=== PATIENT | female | born 1980 | race Caucasian/White ===

== ENCOUNTER → 2018-07-23 13:05 | Outpatient (CLI) | payer SELFPAY | PROVIDERS: Family Provider Family Medicine; PCP Family Medicine; Visit Provider Nurse Practitioner Family | DX: N39.0 Urinary tract infection, site not specified (principal) | CPT/HCPCS: 87086; 87088; 87186 ==

== ENCOUNTER → 2020-07-15 07:52 | Outpatient (CLI) | payer BC, SELFPAY ==
[2020-07-02 08:12] VITALS: BMI 26.2
[2020-07-15 10:25] LABS: AST(SGOT) 16 U/L (15-37); Alanine Aminotransfer ALT/SGPT 22 U/L (13-56); Albumin, Serum 3.8 g/dL (3.2-5.0); Alkaline Phosphatase 69 U/L (45-117); Anion Gap 8 (5-15); BUN 20 mg/dL (7-18); BUN/Creat Ratio 21.8 RATIO (10-20); Calcium,Total 8.9 mg/dL (8.5-10.1); Chloride 109 mmol/L (98-107); Cholesterol 185 mg/dL (200); Creatinine, Serum 0.92 mg/dL (0.55-1.02); EST Glomerular Filtration Rate 72 mL/min (>60); Est Glom Filt Rate - Afr Amer 87 mL/min (>60); Globulin 3.7 g/dL (2.2-4.2); Glucose 92 mg/dL (74-106); High Density Lipoprotein 51 mg/dL; Potassium 3.4 mmol/L (3.5-5.1); Protein, Total 7.5 g/dL (6.4-8.2); Sodium Level 140 mmol/L (136-145); Triglycerides 76 mg/dL; Very Low Density Lipoprotein 15 mg/dL (5-40)
== END ==
PROVIDERS: PCP Family Medicine; Referring Provider Family Medicine; Visit Provider Family Medicine
DX: G43.909 Migraine, unspecified, not intractable, without status migrainosus (principal); Z13.220 Encounter for screening for lipoid disorders
CPT/HCPCS: 36415; 80053; 80061

== ENCOUNTER → 2020-07-17 06:32 | Outpatient (CLI) | payer BC, SELFPAY ==
[2020-07-02 08:12] VITALS: BMI 26.2
--- NOTE | 2020-07-17 06:32 | MRI_ITS ---
STUDY: MRI BRAIN WITH AND WITHOUT CONTRAST REASON FOR EXAM: Female, 40 years old. chronic parietal migraines x 20 yrs TECHNIQUE: Standardized multiplanar fat and water weighted pulse sequences were obtained. IV 13cc dotarem was administered for the contrast portion of the examination. COMPARISON: CT of the head dated 01/03/2011 FINDINGS: Normal size of the ventricles and extra-axial spaces for the patient''s age. Normal white matter tracts of the supratentorial brain. Normal bilateral basal ganglia. Normal thalami. There is no extra-axial fluid accumulation. Normal flow voids within the major intracranial circulation suggesting patency by spin echo criteria. Normal venous enhancement. There is no enhancing intra-axial or extra-axial abnormality. Normal sella turcica, pituitary gland, infundibular stalk, optic chiasm and hypothalamus. Normal tectal plate and pineal gland. Normal midbrain, nimisha and medulla. Normal cerebellum. Normal basal cisterns. Normal bilateral temporal bones. Normal bilateral internal auditory canals. No demonstrated orbital abnormality, within the constraints of a routine brain study. Normal visualized paranasal sinuses. Normal calvarium and skull base. Normal visualized soft tissue structures. Normal visualized upper cervical spine. MRI/Brain W/WO Contrast IMPRESSION: Normal unenhanced and enhanced MRI of the brain. Electronically Signed: Jean Carlos Marquez MD at 8:06 EDT Tel , Service support ,
== END ==
PROVIDERS: PCP Family Medicine; Referring Provider Nurse Practitioner Family; Visit Provider Nurse Practitioner Family
DX: G43.909 Migraine, unspecified, not intractable, without status migrainosus (principal)
CPT/HCPCS: 70553; A9575

== ENCOUNTER 2022-09-25 06:37 | Emergency (ER) | payer OTHER, SELFPAY ==
[2022-09-25 06:39] VITALS: BP 170/94; PULSE 90; RESP 18; TEMP 36.4; O2SAT 98; BMI 25.5
--- NOTE | 2022-09-25 06:50 | CT_ITS ---
EXAM: CT ABDOMEN AND PELVIS WITHOUT INTRAVENOUS CONTRAST CLINICAL INDICATION: left flank pain TECHNIQUE: Helically acquired images were obtained of the abdomen and pelvis without intravenous contrast. This CT exam was performed using one or more of the following dose reduction techniques: automated exposure control, adjustment of the mA and/or kV according to patient size, and/or use of iterative reconstruction technique. This report was created using [employer] report generation technology. RADIATION DOSE: CTDIvol = 6.64 mGy, DLP = 327.03 mGy-cm. COMPARISON: None. FINDINGS: LOWER THORAX: Unremarkable. Lung bases are clear. No cardiomegaly. No significant pericardial effusion. ABDOMEN: LIVER: Unremarkable. Homogeneous. GALLBLADDER AND BILE DUCTS: Unremarkable. No calcified gallstones. No gallbladder distention or wall edema. No intra- or extrahepatic biliary ductal dilation. PANCREAS: Unremarkable. No focal cystic mass. SPLEEN: Unremarkable. Normal size without focal cystic or solid mass. ADRENALS: Unremarkable. No nodules. KIDNEYS AND URETERS: Moderate left hydroureteronephrosis due to a stone measuring 5 x 4 x 4.5 mm at the left ureterovesical junction. Numerous small nonobstructing stones bilaterally in the kidneys. Normal renal size and position. STOMACH AND BOWEL: Unremarkable. No stomach or bowel distention. No focal inflammatory change. PELVIS: APPENDIX: Appendectomy by history. BLADDER: Unremarkable. REPRODUCTIVE: Hysterectomy. ABDOMEN and PELVIS: INTRAPERITONEAL SPACE: Unremarkable. No ascites or other fluid collection. No free air. BONES/JOINTS: Unremarkable. No suspicious lytic or blastic abnormality. SOFT TISSUES: Unremarkable. No discrete abdominal or pelvic wall hernia. VASCULATURE: Unremarkable. Abdominal aorta is non-dilated. LYMPH NODES: Unremarkable. No enlarged lymph nodes. CT/Abdomen/Pelvis without Cont IMPRESSION: 1. Moderate left hydroureteronephrosis due to a stone measuring 5 x 4 x 4.5 mm at the left ureterovesical junction. 2. Numerous small nonobstructing stones bilaterally in the kidneys. 3. Hysterectomy. Electronically Signed: Marty William MD at 7:38 EST ,
--- NOTE | 2022-09-25 06:51 | EX.ED.DYSGE1 ---
HPI History of Present Illness Chief Complaint: Flank Pain Informant: patient Onset/Context/Timing Onset: Yesterday Context: Gradual Onset Timing: Waxes and wanes Current Severity: Moderate Maximum Severity: Severe Narrative Narrative: Patient present secondary left flank pain. She states she woke yesterday morning with left-sided flank pain. She had urinary frequency but no dysuria. She is concerned she may have a kidney stone. She reports poor appetite with some mild nausea secondary to pain. [facility] Medical History Allergic rhinitis Attention deficit disorder Generalized anxiety disorder Hypertension, essential IBS (irritable bowel syndrome) Migraine Migraine without aura, not intractable, without status migrainosus Mood disorder Raynaud's disease Seborrheic keratosis Home Medications multivitamin 1 tab PO DAILY 06/29/20 [History Last Taken Unknown] dextroamphetamine-amphetamine ER 20 mg 24hr capsule,extend release 20 mg PO DAILY 06/14/21 [History Last Taken Unknown] flurbiprofen 100 mg tablet 100 mg PO TID PRN pain #90 tabs 06/09/22 [Rx Last Taken Unknown] atogepant 60 mg tablet (Qulipta) 60 mg PO DAILY #30 tabs 08/15/22 [Rx Last Taken Unknown] duloxetine 30 mg capsule,delayed release 30 mg PO DAILY #30 caps 08/15/22 [Rx Last Taken Unknown] eletriptan 40 mg tablet 40 mg .Route .COMPLEX migraine headache #9 tabs 08/15/22 [Rx Last Taken Unknown] verapamil 360 mg 24 hr capsule,extended release 360 mg PO QAM #30 caps 08/15/22 [Rx Last Taken Unknown] hydrocodone-acetaminophen 5-325mg 5mg-325mg 1 tab PO Q6H PRN pain 3 days #10 tabs 09/25/22 [Rx Last Taken Unknown] ibuprofen 600 mg tablet 600 mg PO Q8H PRN PRN pain #20 tabs 09/25/22 [Rx Last Taken Unknown] ondansetron 4 mg disintegrating tablet 4 mg PO Q8H PRN nausea and vomiting #10 tabs 09/25/22 [Rx Last Taken Unknown] tamsulosin 0.4 mg capsule (Flomax) 0.4 mg PO DAILY #7 caps 09/25/22 [Rx Last Taken Unknown] Allergy/AdvReac Type Severity Reaction Status Date / Time shellfish derived Allergy Swelling Verified 09/25/22 06:43 Family History Father Heart disease Hypertension Melanoma Grandmother Melanoma Aunt Melanoma Aunt Melanoma Other CAD (coronary artery disease) Surgical History H/O: hysterectomy History of appendectomy History of Social History Smoking Status: Never smoker second hand exposure: No alcohol intake: current alcohol intake frequency: a few times a month Alcohol type: beer and hard liquor substance use type: does not use frequency: 1-2 times per week rajat/taoist: None seatbelt use: always ROS ROS ED Constitutional Constitutional ED: Denies chills or fever(s) Eyes Eyes: Denies change in vision or discharge from eye(s) ENT ENT ED: Denies discharge from eye(s), rhinorrhea or sore throat Cardiovascular Cardiovascular: Denies chest pain or palpitations Respiratory/Chest Respiratory/Chest: Denies cough or dyspnea Gastrointestinal Gastrointestinal: Reports abdominal pain and nausea; Denies diarrhea or vomiting Genitourinary Genitourinary ED: Reports urinary frequency; Denies difficulty urinating or dysuria Musculoskeletal Musculoskeletal: Reports back pain; Denies extremity pain Integumentary Denies Abrasions or rash Neurologic Neurologic: Denies headache(s) or weakness Allergic/Immunologic Allergic/Immunologic ED: Denies lip swelling or urticaria EXAM Physical Exam Const Vital Signs: 09/25/22 06:39 09/25/22 06:47 Temperature 97.6 F L Temperature Source Temporal Pulse Rate 90 Respiratory Rate 18 Respiratory Effort Normal Non-Labored Respiratory Pattern Normal Blood Pressure 170/94 H Blood Pressure Mean 119 Pulse Ox 98 Oxygen Delivery Method Room Air Positive well nourished and well developed General Appearance ED: well developed HEENT Reports normocephalic and head/scalp atraumatic Eyes PERRL and EOMs intact bilaterally Neck supple Chest Wall inspection of chest normal and palpation of chest normal Resp normal respiratory effort and clear to auscultation bilaterally Cardio regular rate and regular rhythm GI normal to inspection, nondistended, normoactive bowel sounds Palpation: soft Back/Spine General Back: CVA tenderness left Extremity normal to inspection Neuro oriented x3 and no sensory deficits noted Sensorium / Orientation: alert Motor Exam: strength 5/5 throughout Psych mental status grossly normal Skin no rashes or lesions noted MDM MDM MDM Narrative Medical decision making narrative: Patient was given morphine, Toradol, Zofran, IV fluids. Lab work and urinalysis obtained. Patient sent for CT flank. Lab Data Attestation: I reviewed the patient's lab results. Labs: Laboratory Results - last 24 hr 09/25/22 09/25/22 09/25/22 07:00 07:00 07:00 WBC 14.4 H RBC 4.28 Hgb 12.7 Hct 39.5 MCV 92.3 MCH 29.7 MCHC 32.2 RDW Std Deviation 45.5 H RDW Coeff of Sophia 13.3 Plt Count 262 MPV 9.7 Immature Gran % (Auto) 0.500 Neut % (Auto) 78.8 H Lymph % (Auto) 11.3 L [place] % (Auto) 7.6 Eos % (Auto) 1.5 Baso % (Auto) 0.3 Absolute Neuts (auto) 11.4 H Absolute Lymphs (auto) 1.63 Nucleated RBC % 0 Sodium 139 Potassium 3.4 L Chloride 105 Carbon Dioxide 29.0 Anion Gap 5 BUN 18 Creatinine 1.14 H Estim Creat Clear Calc 54.95 Est GFR (MDRD) Af Amer 67 Est GFR (MDRD) Non-Af 55 L BUN/Creatinine Ratio 15.8 Glucose 139 H Calcium 9.1 Urine Color Yellow Urine Clarity Clear Urine pH 6.0 Ur Specific [place] 1.025 Urine Protein 30 H Urine Glucose (UA) Normal Urine Ketones Negative Urine Occult Blood 150 H Urine Nitrite Negative Urine Bilirubin Negative Urine Urobilinogen Normal Ur Leukocyte Esterase 100 H Urine RBC 5-10 SEEN Urine WBC 0-5 SEEN Ur Squamous Epith Cells 0-5 SEEN Urine Bacteria 1+ Urine Mucus 0 SEEN Radiography Diagnostic Testing: Clinical Impression(s) from Imaging Studies Abdomen/Pelvis CT 09/25/22 06:50 IMPRESSION: 1. Moderate left hydroureteronephrosis due to a stone measuring 5 x 4 x 4.5 mm at the left ureterovesical junction. 2. Numerous small nonobstructing stones bilaterally in the kidneys. 3. Hysterectomy. Electronically Signed: Marty William MD at 7:38 EST , Treatment and Re-Evaluation Narrative: White count is slightly elevated at 14.4 with 78% neutrophils. Chemistry studies reveal slightly low potassium at 3.4. Creatinine is 1.14. Urinalysis reveals 5-10 red cells with 1+ bacteria. 0-5 white cells and no nitrites noted. CT flank reveals moderate left-sided hydronephrosis with a stone measuring 5 x 4 x 4.5 mm at the right UVJ. There are numerous small stones in the kidneys. On repeat evaluation pain is improved. I will go ahead and give her a second dose of pain medication here. She will be treated with [place], ibuprofen, Zofran, Flomax. She will be referred to Dr. Cook for follow-up. Return instructions given. Discharge Plan Triage Chief Complaint: Flank Pain ED Provider: Elda Padilla Dx/Rx/DC Orders Clinical Impression: Kidney stone Instructions: ED Kidney Stone w/ Colic Prescriptions: New ibuprofen 600 mg tablet 600 mg PO Q8H PRN PRN (Reason: pain) Qty: 20 0RF hydrocodone-acetaminophen 5-325 mg tablet 1 tab PO Q6H PRN (Reason: pain) 3 Days Qty: 10 0RF ondansetron 4 mg tablet,disintegrating 4 mg PO Q8H PRN (Reason: nausea and vomiting) Qty: 10 0RF tamsulosin [Flomax] 0.4 mg capsule 0.4 mg PO DAILY Qty: 7 0RF No Action multivitamin Tablet 1 tab PO DAILY dextroamphetamine-amphetamine 20 mg capsule,extended release 24hr 20 mg PO DAILY Label Comments: take 1 capsule by mouth once daily verapamil 360 mg capsule,ext rel. pellets 24 hr 360 mg PO QAM Qty: 30 6RF eletriptan 40 mg tablet 40 mg .ROUTE .COMPLEX Qty: 9 5RF Rx Instructions: 40 mg po daily prn; may repeat dose x1 after 2 hours; do not exceed 80mg in 24 hours duloxetine 30 mg capsule,delayed release(DR/EC) 30 mg PO DAILY Qty: 30 6RF Qulipta 60 mg tablet 60 mg PO DAILY Qty: 30 6RF flurbiprofen 100 mg tablet 100 mg PO TID PRN (Reason: pain) Qty: 90 3RF Primary Care Provider: Karely Krause Referrals: Wes Cook MD [Med Staff - Active Staff] - 1 Week if not improving Moody Aly MD [Non-Staff] - Disposition Disposition: Home, Self Care
[2022-09-25] MEDS: 0.9% Normal Saline 1,000 ML 1000 ML IV (07:00)
[2022-09-25] MEDS: Ondansetron 4 MG/2 ML Vial IV (07:01)
[2022-09-25] MEDS: Ketorolac 30 MG/ML Syringe IV (07:01)
[2022-09-25] MEDS: Morphine 4 MG/ML Syringe IV (07:01)
[2022-09-25 07:16] LABS: Mucous, Urine 0 SEEN /hpf (<or=2+)
[2022-09-25 07:20] LABS: Absolute Lymphocyte Count 1.63 X10^3/uL (0.83-4.51); Absolute Neutrophil Count 11.4 X10^3/uL (2.0-7.7); Basophil# 0.04 X10^3/uL; Basophil% 0.3 % (0-1); Eosinophil# 0.22 X10^3/uL; Eosinophils% 1.5 % (0-5); Hematocrit 39.5 % (37-47); Hemoglobin 12.7 g/dL (12.0-15.0); Lymphocyte # 1.63 X10^3/ul (0.83-4.51); Lymphocyte % 11.3 % (19-41); Mean Corp Hgb Conc 32.2 g/dL (32-36); Mean Corpuscular Hgb 29.7 pg (27.0-32.0); Mean Corpuscular Volume 92.3 fL (81-99); Mean Platelet Vol. 9.7 fl (6.2-12.0); Monocyte% 7.6 % (0-10); NRBC Flagged by Analyzer 0 % (0-5); Neutrophil # 11.35 X10^3/uL (2.7-7.7); Neutrophil % 78.8 % (47-70); Platelet Count 262 K/mm3 (150-450); RBC Distribution Width CV 13.3 % (11.6-14.6); RBC Distribution Width SD 45.5 fl (35.1-43.9); Red Blood Count 4.28 M/mm3 (4.2-5.4); White Blood Count 14.4 K/mm3 (4.4-11.0)
[2022-09-25 07:31] LABS: Anion Gap 5 (5-15); BUN 18 mg/dL (7-18); BUN/Creat Ratio 15.8 RATIO (10-20); Calcium,Total 9.1 mg/dL (8.5-10.1); Chloride 105 mmol/L (98-107); Creatinine, Serum 1.14 mg/dL (0.55-1.02); EST Glomerular Filtration Rate 55 mL/min (>60); Est Glom Filt Rate - Afr Amer 67 mL/min (>60); Estimated Creatinine Clearance 54.95 ml/min; Glucose 139 mg/dL (74-106); Potassium 3.4 mmol/L (3.5-5.1); Sodium Level 139 mmol/L (136-145)
[2022-09-25 07:40] LABS: Color, Urine Yellow (Yellow); Glucose, Dipstick Normal (Normal); Ketone-Dipstick Negative (Negative); Leukocyte Esterase-Dipstick 100 /ul (Negative); Nitrite-Dipstick Negative (Negative); Occult Blood-Urine 150 /ul (Negative); Protein-Dipstick 30 mg/dl (Negative); Specific Gravity, Urine 1.025 (1.002-1.030); Urine Bilirubin Dipstick Negative (Negative); Urine Clarity Clear (Clear); Urine Urobilinogen Normal (Normal)
[2022-09-25 07:50] LABS: Bacteria 1+ /hpf (None Seen); Red Blood Cells-Urine 5-10 SEEN /hpf (0-5); Squamous Epithelial Cells - UA 0-5 SEEN /hpf (5-10); White Blood Cells 0-5 SEEN /hpf (0-5)
[2022-09-25] MEDS: HYDROmorphone 0.5 MG/0.5 ML SYRINGE IV (08:04)
[2022-09-25 08:12] VITALS: BP 133/88; PULSE 76; RESP 18; O2SAT 97
== END 2022-09-25 08:19 | disposition home or self-care (01) ==
PROVIDERS: Emergency Provider Emergency Medicine; PCP Family Medicine; Visit Provider Emergency Medicine
DX: N20.0 Calculus of kidney (principal); I10 Essential (primary) hypertension; R10.9 Unspecified abdominal pain; R35.0 Frequency of micturition
CPT/HCPCS: 74176; 80048; 81001; 85025; 96361; 96374; 96375; 99282; J7030; A4216; J2405

== ENCOUNTER 2022-09-27 08:12 | Emergency (ER) | payer OTHER, SELFPAY ==
[2022-09-27 08:13] VITALS: BP 74/46; PULSE 82; RESP 18; TEMP 36.6; O2SAT 99; BMI 24.9
[2022-09-27 08:15] VITALS: BP 102/70; PULSE 74; RESP 16; TEMP 37.1; O2SAT 98
--- NOTE | 2022-09-27 08:41 | EDS_ITS ---
HPI History of Present Illness Chief Complaint: Fever Narrative Narrative: 42-year-old female states she was seen in the emergency department on Monday, 3 days ago when she had a kidney stone. She passed it the following day, yesterday. She has no longer having flank pain. However, she states yesterday evening she spiked a fever. She has been taking Tylenol with relief of her symptoms. She denies any nausea or vomiting. No upper respiratory infection type symptoms. She states she feels dehydrated and lightheaded, sometimes worse with standing. No diarrhea, no other symptoms. She last took Tylenol this morning approximately 2 or 2-1/2 hours ago. [facility] Medical History (Updated 09/27/22 @ 11:07 by Gregg Mota MD) Allergic rhinitis Attention deficit disorder Generalized anxiety disorder Hypertension, essential IBS (irritable bowel syndrome) Migraine Migraine without aura, not intractable, without status migrainosus Mood disorder Raynaud's disease Home Medications multivitamin 1 tab PO DAILY 06/29/20 [History Last Taken Unknown] dextroamphetamine-amphetamine ER 20 mg 24hr capsule,extend release 20 mg PO DAILY 06/14/21 [History Last Taken Unknown] flurbiprofen 100 mg tablet 100 mg PO TID PRN pain #90 tabs 06/09/22 [Rx Last Taken Unknown] atogepant 60 mg tablet (Qulipta) 60 mg PO DAILY #30 tabs 08/15/22 [Rx Last Taken Unknown] duloxetine 30 mg capsule,delayed release 30 mg PO DAILY #30 caps 08/15/22 [Rx Last Taken Unknown] eletriptan 40 mg tablet 40 mg .Route .COMPLEX migraine headache #9 tabs 08/15/22 [Rx Last Taken Unknown] verapamil 360 mg 24 hr capsule,extended release 360 mg PO QAM #30 caps 08/15/22 [Rx Last Taken Unknown] hydrocodone-acetaminophen 5-325mg 5mg-325mg 1 tab PO Q6H PRN pain 3 days #10 tabs 09/25/22 [Rx Last Taken Unknown] ibuprofen 600 mg tablet 600 mg PO Q8H PRN PRN pain #20 tabs 09/25/22 [Rx Last Taken Unknown] ondansetron 4 mg disintegrating tablet 4 mg PO Q8H PRN nausea and vomiting #10 tabs 09/25/22 [Rx Last Taken Unknown] tamsulosin 0.4 mg capsule (Flomax) 0.4 mg PO DAILY #7 caps 09/25/22 [Rx Last Taken Unknown] sulfamethoxazole 800 mg-trimethoprim 160 mg tablet (Bactrim DS) 1 tab PO BID #14 tabs 09/27/22 [Rx Last Taken Unknown] Allergy/AdvReac Type Severity Reaction Status Date / Time shellfish derived Allergy Swelling Verified 09/27/22 08:15 Family History Father Heart disease Hypertension Melanoma Grandmother Melanoma Aunt Melanoma Aunt Melanoma Other CAD (coronary artery disease) Surgical History H/O: hysterectomy History of appendectomy History of Social History Smoking Status: Never smoker second hand exposure: No alcohol intake: current alcohol intake frequency: a few times a month Alcohol type: beer and hard liquor substance use type: does not use frequency: 1-2 times per week rajat/mandaeism: None seatbelt use: always ROS ROS ED ROS Narrative Constitutional: Positive fever, no chills. HEENT: No sore throat. No neck pain. No loss of vision. No rhinorrhea. Cardiovascular: No chest pain. No palpitations. No pedal edema. Respiratory: No cough, no shortness of breath. Abdominal: No abdominal pain. No nausea. No vomiting. Genitourinary: No dysuria. No hematuria. Musculoskeletal: No myalgias. No arthralgias. Neurologic: No headaches. No dizziness. Positive lightheadedness. Skin: No rash. No change in color. Psychiatric: No depression. No anxiety. EXAM Physical Exam Narrative Exam Narrative: Afebrile. Vital signs noted. Blood pressure noted to be 74/46. HEENT: Normocephalic. Atraumatic. PERRL, EOMI. Neck soft and supple. No point tenderness or step off. Cardiovascular: Regular rate and rhythm. No murmurs, rubs, or gallops appreciated. Respiratory: No tachypnea. Lungs clear to auscultation bilaterally. Gastrointestinal: Abdomen soft, nontender, with normoactive bowel sounds. No rebound or guarding. Neurological: Awake. Alert. Nonfocal, nonlateralizing. Skin: No rash. Normal color. No pallor. Musculoskeletal: No pedal edema. Full range of motion extremities. Const Vital Signs: 09/27/22 08:13 09/27/22 10:29 09/27/22 08:15 Temperature 98 F 98.7 F Temperature Source Temporal Temporal Pulse Rate 82 74 Respiratory Rate 18 16 Respiratory Effort Normal Non-Labored Respiratory Pattern Normal Blood Pressure 74/46 L 102/70 Blood Pressure Mean 55 80 Pulse Ox 99 98 Oxygen Delivery Method Room Air Room Air 09/27/22 09:15 09/27/22 10:15 Temperature 98.6 F 98.3 F Temperature Source Temporal Temporal Pulse Rate 82 80 Respiratory Rate 18 16 Respiratory Effort Respiratory Pattern Blood Pressure 96/58 L 100/69 Blood Pressure Mean 70 79 Pulse Ox 99 98 Oxygen Delivery Method Room Air Room Air MDM MDM MDM Narrative Medical decision making narrative: She Tucker did not perform orthostatics as she already has a low blood pressure. I will check her CBC, BMP to look for an electrolyte imbalance versus dehydration. Urinalysis will also be checked. Pulse ox is 99% on room air without evidence of hypoxia, and she has no upper respiratory infection type symptoms so I do not feel chest x-ray is indicated. She was bolused normal saline 1 L intravenously. Afterwards, her blood pressure is 107 systolic and she feels improved. I feel she may have had intravascular volume depletion/orthostatic hypotension which was causing her lightheadedness. Afebrile here. She has normal white count of 10.0 and hemoglobin normal at 12.4 with normal platelet count of 220. Electrolyte panel is grossly unremarkable except for creatinine slightly elevated at 1.10 with a normal BUN of 11. Glucose appropriately elevated at 114 with a normal anion gap of 6. Urinalysis shows 500 leukocyte esterases, negative nitrites but 25-50 WBCs. I think this may have been the source of her fever. She was given her first dose of Bactrim and a prescription written for the next 7 days to take twice a day. She will drink plenty of fluids. Her urine was sent for culture given her recent kidney stone. At this point in time, upon repeat examination she is feeling improved and would like to be discharged. I feel she be discharged safely home with follow-up. Return instructions to the emergency department were reviewed. Disposition is discharged home in stable condition. Lab Data Attestation: I reviewed the patient's lab results. Labs: Laboratory Results - last 24 hr 09/27/22 09/27/22 09/27/22 08:48 08:48 09:10 WBC 10.0 RBC 4.08 L Hgb 12.4 Hct 37.5 MCV 91.9 MCH 30.4 MCHC 33.1 RDW Std Deviation 45.1 H RDW Coeff of Sophia 13.2 Plt Count 220 MPV 9.3 Immature Gran % (Auto) 0.500 Neut % (Auto) 75.3 H Lymph % (Auto) 14.4 L [place] % (Auto) 9.4 Eos % (Auto) 0.3 Baso % (Auto) 0.1 Absolute Neuts (auto) 7.5 Absolute Lymphs (auto) 1.44 Nucleated RBC % 0 Sodium 136 Potassium 3.6 Chloride 100 Carbon Dioxide 30.0 Anion Gap 6 BUN 11 Creatinine 1.10 H Estim Creat Clear Calc 56.94 Est GFR (MDRD) Af Amer 70 Est GFR (MDRD) Non-Af 58 L BUN/Creatinine Ratio 10.0 Glucose 114 H Calcium 9.5 Total Bilirubin 0.40 AST 11 L ALT 18 Alkaline Phosphatase 71 Total Protein 7.2 Albumin 3.3 Globulin 3.9 Albumin/Globulin Ratio 0.8 L Urine Color Yellow Urine Clarity Sl. Cloudy Urine pH 6.0 Ur Specific [place] 1.015 Urine Protein 30 H Urine Glucose (UA) Normal Urine Ketones 5 H Urine Occult Blood 150 H Urine Nitrite Negative Urine Bilirubin 1 H Urine Urobilinogen 1 H Ur Leukocyte Esterase 500 H Urine RBC 0-5 SEEN Urine WBC 25-50 SEEN Ur Squamous Epith Cells 0-5 SEEN Amorphous Sediment 1+ Urine Bacteria RARE Urine Mucus 0 SEEN Discharge Plan Triage Chief Complaint: Fever ED Provider: Gregg Mota Dx/Rx/DC Orders Clinical Impression: UTI (urinary tract infection), Orthostatic hypotension Instructions: ED Hypotension, Orthostatic, ED Cystitis Female Adult Prescriptions: New sulfamethoxazole-trimethoprim [Bactrim DS] 800-160 mg tablet 1 tab PO BID Qty: 14 0RF No Action multivitamin Tablet 1 tab PO DAILY dextroamphetamine-amphetamine 20 mg capsule,extended release 24hr 20 mg PO DAILY Label Comments: take 1 capsule by mouth once daily verapamil 360 mg capsule,ext rel. pellets 24 hr 360 mg PO QAM Qty: 30 6RF eletriptan 40 mg tablet 40 mg .ROUTE .COMPLEX Qty: 9 5RF Rx Instructions: 40 mg po daily prn; may repeat dose x1 after 2 hours; do not exceed 80mg in 24 hours duloxetine 30 mg capsule,delayed release(DR/EC) 30 mg PO DAILY Qty: 30 6RF Qulipta 60 mg tablet 60 mg PO DAILY Qty: 30 6RF ibuprofen 600 mg tablet 600 mg PO Q8H PRN PRN (Reason: pain) Qty: 20 0RF hydrocodone-acetaminophen 5-325 mg tablet 1 tab PO Q6H PRN (Reason: pain) 3 Days Qty: 10 0RF ondansetron 4 mg tablet,disintegrating 4 mg PO Q8H PRN (Reason: nausea and vomiting) Qty: 10 0RF tamsulosin [Flomax] 0.4 mg capsule 0.4 mg PO DAILY Qty: 7 0RF flurbiprofen 100 mg tablet 100 mg PO TID PRN (Reason: pain) Qty: 90 3RF Primary Care Provider: Karely Krause Referrals: Karely Krause, [Primary Care Provider] - 3-5 Days if not improving Disposition Disposition: Home, Self Care
[2022-09-27 09:02] LABS: Absolute Lymphocyte Count 1.44 X10^3/uL (0.83-4.51); Absolute Neutrophil Count 7.5 X10^3/uL (2.0-7.7); Basophil# 0.01 X10^3/uL; Basophil% 0.1 % (0-1); Eosinophil# 0.03 X10^3/uL; Eosinophils% 0.3 % (0-5); Hematocrit 37.5 % (37-47); Hemoglobin 12.4 g/dL (12.0-15.0); Lymphocyte # 1.44 X10^3/ul (0.83-4.51); Lymphocyte % 14.4 % (19-41); Mean Corp Hgb Conc 33.1 g/dL (32-36); Mean Corpuscular Hgb 30.4 pg (27.0-32.0); Mean Corpuscular Volume 91.9 fL (81-99); Mean Platelet Vol. 9.3 fl (6.2-12.0); Monocyte# 0.94 X10^3/uL; Monocyte% 9.4 % (0-10); NRBC Flagged by Analyzer 0 % (0-5); Neutrophil # 7.53 X10^3/uL (2.7-7.7); Neutrophil % 75.3 % (47-70); Platelet Count 220 K/mm3 (150-450); RBC Distribution Width CV 13.2 % (11.6-14.6); RBC Distribution Width SD 45.1 fl (35.1-43.9); Red Blood Count 4.08 M/mm3 (4.2-5.4)
[2022-09-27] MEDS: 0.9% Normal Saline 1,000 ML 999 ML IV (09:11)
[2022-09-27 09:12] LABS: ALB/GLOB Ratio 0.8 RATIO (0.9-2.4); AST(SGOT) 11 U/L (15-37); Alanine Aminotransfer ALT/SGPT 18 U/L (13-56); Albumin, Serum 3.3 g/dL (3.2-5.0); Alkaline Phosphatase 71 U/L (45-117); Anion Gap 6 (5-15); BUN 11 mg/dL (7-18); Calcium,Total 9.5 mg/dL (8.5-10.1); Chloride 100 mmol/L (98-107); EST Glomerular Filtration Rate 58 mL/min (>60); Est Glom Filt Rate - Afr Amer 70 mL/min (>60); Estimated Creatinine Clearance 56.94 ml/min; Globulin 3.9 g/dL (2.2-4.2); Glucose 114 mg/dL (74-106); Potassium 3.6 mmol/L (3.5-5.1); Protein, Total 7.2 g/dL (6.4-8.2); Sodium Level 136 mmol/L (136-145)
[2022-09-27 09:15] VITALS: BP 96/58; PULSE 82; RESP 18; TEMP 37; O2SAT 99
[2022-09-27 09:15] LABS: Mucous, Urine 0 SEEN /hpf (<or=2+)
[2022-09-27 09:21] LABS: Color, Urine Yellow (Yellow); Glucose, Dipstick Normal (Normal); Ketone-Dipstick 5 mg/dl (Negative); Leukocyte Esterase-Dipstick 500 /ul (Negative); Nitrite-Dipstick Negative (Negative); Occult Blood-Urine 150 /ul (Negative); Protein-Dipstick 30 mg/dl (Negative); Specific Gravity, Urine 1.015 (1.002-1.030); Urine Clarity Sl. Cloudy (Clear); Urine Urobilinogen 1 mg/dl (Normal)
[2022-09-27 09:23] LABS: Urine Bilirubin Dipstick 1 mg/dL (Negative)
[2022-09-27 09:28] LABS: Amorphous Sediment 1+; Bacteria RARE /hpf (None Seen); Red Blood Cells-Urine 0-5 SEEN /hpf (0-5); Squamous Epithelial Cells - UA 0-5 SEEN /hpf (5-10); White Blood Cells 25-50 SEEN /hpf (0-5)
[2022-09-27 10:15] VITALS: BP 100/69; PULSE 80; RESP 16; TEMP 36.8; O2SAT 98
[2022-09-27 11:05] VITALS: BP 105/68; BP 122/77; PULSE 68; PULSE 82; RESP 14; TEMP 37; O2SAT 98
[2022-09-27 11:15] VITALS: BP 107/64; PULSE 78; RESP 18; TEMP 36.9; O2SAT 97
[2022-09-27] MEDS: Smz/Tmp Ds Tablet 1 TABLET PO (11:34)
== END 2022-09-27 11:48 | disposition home or self-care (01) ==
PROVIDERS: Emergency Provider Emergency Medicine; PCP Family Medicine; Visit Provider Emergency Medicine
DX: N39.0 Urinary tract infection, site not specified (principal); I95.1 Orthostatic hypotension; I10 Essential (primary) hypertension
CPT/HCPCS: 80053; 81001; 85025; 87077; 87086; 87088; 87186; 99284; J7030; A4216

== ENCOUNTER → 2022-10-17 | Outpatient (CLI) | payer OTHER, SELFPAY ==
[2022-10-25 11:25] LABS: Source Not Provided
== END | disposition home or self-care (01) ==
LOC: LABSPEC 16:19
PROVIDERS: PCP Family Medicine; Visit Provider Urology
DX: N20.9 Urinary calculus, unspecified (principal)
CPT/HCPCS: 82360

== ENCOUNTER → 2022-12-07 | Outpatient (CLI) | payer OTHER, SELFPAY ==
--- NOTE | 2022-12-07 08:22 | RAD_ITS ---
STUDY: X-RAY - ABDOMEN/PELVIS REASON FOR EXAM: Female, 42 years old. CALCULUS OF KIDNEY TECHNIQUE: Single AP view of the abdomen / pelvis. COMPARISON: CT from 09/25/2022 FINDINGS: Normal visualized lung bases. There is an unremarkable bowel gas pattern. There is no demonstrated free abdominal air. The visualized liver, spleen and kidneys are grossly normal in size and morphology. Multiple calcific densities overlying both renal shadows. No suspicious calcifications along the expected courses of either ureters or within the pelvis. There are calcified phleboliths in the pelvis. Normal visualized osseous structures. RAD/Abdomen Single View IMPRESSION: No acute findings, Bilateral nephrolithiasis Electronically Signed: Thaddeus Anderson MD at 9:27 EST ,
== END | disposition home or self-care (01) ==
LOC: RAD 08:06
PROVIDERS: PCP Family Medicine; Referring Provider Urology; Visit Provider Urology
DX: N20.2 Calculus of kidney with calculus of ureter (principal)
CPT/HCPCS: 74018

== ENCOUNTER → 2023-02-06 | Outpatient (CLI) | payer OTHER, SELFPAY ==
--- NOTE | 2023-02-06 10:30 | RAD_ITS ---
STUDY: X-RAY - ABDOMEN/PELVIS REASON FOR EXAM: Female, 42 years old. KUB TECHNIQUE: Two AP supine views of the abdomen and pelvis. COMPARISON: None. FINDINGS: Normal visualized lung bases. There is an abundance of fecal material throughout the colon. There is no demonstrated free abdominal air. The visualized liver, spleen and kidneys are grossly normal in size and morphology. Normal soft tissue structures. Normal visualized osseous structures. RAD/Abdomen Single View IMPRESSION: No acute findings, retained stool throughout the colon Electronically Signed: Thaddeus Anderson MD at 11:01 EDT ,
== END | disposition home or self-care (01) ==
PROVIDERS: PCP Family Medicine; Referring Provider Urology; Visit Provider Urology
DX: N20.0 Calculus of kidney (principal)
CPT/HCPCS: 74018

== ENCOUNTER → 2024-02-19 | Outpatient (CLI) | payer OTHER, SELFPAY ==
--- NOTE | 2024-02-19 08:14 | BI_ITS ---
MAMMOGRAPHY - BILATERAL SCREENING REASON FOR EXAM: Female, 43 years old. Routine annual screening examination. PERTINENT HISTORY: Non-contributory. TECHNIQUE: Digital bilateral breast fariba (3D mammographic acquisition) in the CC and MLO projections. 2-D mediolateral oblique (MLO) and craniocaudad (CC) views of both breasts were obtained. CAD: Full Field Digital Mammography with Computer Added Detection was performed. COMPARISON: None. Baseline examination. FINDINGS: Breast Composition: The breasts are heterogeneously dense, which may obscure small masses. There are no dominant masses or suspicious calcifications. Stable small benign-appearing bilateral axillary lymph nodes. No other significant abnormalities are identified. There has been no significant change since the prior study. BI/SCRN MAMM (CAD)W/FARIBA BILAT IMPRESSION: Stable bilateral screening mammogram. Yearly follow-up mammogram recommended. (A) ASSESSMENT CATEGORY: BIRADS Category 2: Benign. A letter regarding these results will be sent to the patient by the facility within 30 days. Approximately 10% of breast cancers are not detected by mammography. A normal mammogram should not delay biopsy of a clinically suspicious abnormality. [id number] Electronically Signed: Hugh Aden MD at 10:15 EDT ,
== END | disposition home or self-care (01) ==
LOC: OPBI 08:11
PROVIDERS: PCP Family Medicine; Referring Provider Family Medicine; Visit Provider Family Medicine
DX: Z12.31 Encounter for screening mammogram for malignant neoplasm of breast (principal)
CPT/HCPCS: 77063; 77067